=== PATIENT | male | born 2000 | race Caucasian/White ===

== ENCOUNTER 2021-10-29 15:58 | Outpatient (CLI) | payer OTHER, SELFPAY ==
[2021-10-29 16:25] LABS: Hematocrit 43.9 % (42.0-52.0); Hemoglobin 14.9 g/dL (14.0-18.0); Mean Corpuscular HGB Conc 33.9 g/dl (32-36); Mean Corpuscular Volume 97.1 fl (80-100); Mean Platelet Volume 12.1 fl (7.4-10.4); Platelet Count Result 191 k/mm3 (150-375); Red Blood Count 4.52 M/mm3 (4.6-6.20); Red Cell Distribution Width 13.3 % (11.5-14.5); White Blood Count 3.3 K/mm3 (4.5-10.0)
[2021-10-29 16:47] LABS: Alanine Aminotransferase 19 U/L (4-50); Albumin Level 4.4 g/dL (3.5-5.1); Alkaline Phosphatase 63 U/L (38-126); Anion Gap 6 mmol/L (8-16); Aspartate Amino Transferase 27 U/L (17-59); Blood Urea Nitrogen 21 mg/dL (9-20); Calcium 9.2 mg/dL (8.4-10.2); Carbon Dioxide 28 mmol/L (22-30); Chloride 105 mmol/L (98-107); Estimated Glomerular Filt Rate > 60; Glucose 88 mg/dL (65-110); Potassium 4.5 mmol/L (3.4-5.0); Sodium 139 mmol/L (137-145)
[2021-10-31 12:09] LABS: NIL 0.01 IU/mL; Quantiferon TB Plus, 1T NEGATIVE (NEGATIVE)
== END 2021-10-29 15:59 | disposition home or self-care (01) ==
LOC: ANHLAB 16:02
PROVIDERS: PCP Emergency Medicine; Visit Provider Internal Medicine Gastroenterology
DX: K50.90 Crohn's disease, unspecified, without complications (principal)
CPT/HCPCS: 36415; 80053; 80076; 82248; 85027; 86480

== ENCOUNTER 2022-03-20 18:10 | Emergency (ER) | payer OTHER, SELFPAY ==
--- NOTE | ~2022-03-20 | XR_ITS ---
EXAMINATION: XR chest 2V DATE: 03/20/2022 18:51 INDICATION: Left chest pain. TECHNIQUE: Frontal and lateral views of the chest were obtained. COMPARISON: None. FINDINGS: There is no pneumonia, pleural effusion, or pneumothorax. The heart size is normal. IMPRESSION: 1. No acute cardiopulmonary disease. Reviewed, dictated and finalized at location A.
[2022-03-20 18:15] VITALS: BP 106/90; PULSE 78; RESP 24; TEMP 36.7; O2SAT 100
--- NOTE | 2022-03-20 18:31 | ED.GENADULT ---
HPI - General Adult General Chief complaint: Unspecified Stated complaint: cp Time Seen by Provider: 03/20/22 18:33 Source: patient and RN notes reviewed Mode of arrival: ambulatory Limitations: no limitations History of Present Illness HPI narrative: 22 y/o male accompanied by mother presented for c/o left side/chest pain intermittently for 2 weeks, states worse today. Denies injury. States pain is shocking sensation and occurs about every 15 minutes. Pt has history of Crohns disease, taking Humira. Reports unintentional weight loss of 25 lbs in about 2 months. Reports increased belching and nausea, states he felt sick after eating today. Not taking anything for pain. Sometimes he 'pops' his back for brief relief. Last labs showed 'start of anemia.' and he is scheduled for repeat labwork tomorrow and due for colonoscopy. Denies cough, wheezing, dizziness, fever or chills. Related Data Home Medications Medication Instructions Recorded Confirmed adalimumab 40 mg/0.4 mL mg subcut 03/20/22 subcutaneous pen kit (Humira(CF) Pen) Allergies Allergy/AdvReac Type Severity Reaction Status Date / Time No Known Allergies Allergy Verified 02/26/16 11:19 Review of Systems Review of Systems: CONSTITUTIONAL: Denies body aches, fever, chills reports weight loss ENT: Denies rhinorrhea, congestion CARDIOVASCULAR: Denies palpitations, or edema. RESPIRATORY: Denies cough or dyspnea. GASTROINTESTINAL: Endorses nausea, belching Denies abdominal pain, hematochezia, melena, hematemesis GENITOURINARY: Denies dysuria, hematuria, or CVA tenderness. SKIN: Denies rash, itching, or wounds. MUSCULOSKELETAL: Denies back pain, joint pain, or myalgia. NEUROLOGIC: Denies headache, numbness, tingling, or weakness. All systems reviewed & are unremarkable except as noted in HPI and below PMFSH Comments At time of signature, I have reviewed and agree with nursing past medical, surgical, social and family history unless otherwise noted. Please see nursing chart for further information. There is no relevant family history pertinent to the presenting complaint Exam Narrative: GENERAL: no acute distress. EYES: EOMI. Conjunctivae normal. ENT: Mucous membranes pink and moist. CHEST: No respiratory distress. Clear to auscultation. Ribs nontender with palpation, no bruising or lesions. HEART: Regular rate and rhythm. No murmur appreciated. Normal peripheral pulses. ABDOMEN: abd soft, nondistended, normal active bowel sounds. mild epigastric TTP; No guarding EXTREMITIES: Normal range of motion. No edema. SKIN: Warm, dry, no rash. Capillary refill normal. Normal skin turgor. NEURO: Alert and oriented x3. PSYCH: appears anxious. Course Course Emergency Course: Patient is aware of diagnosis, understands and agrees to treatment plan. Anticipatory guidance given. Patient agrees to follow-up as directed and is aware of reasons to seek care at the emergency department. Portions of this record may have been created with voice recognition software Level of Care: Express Care Visit Vital Signs Vital signs: Vital Signs Temperature 98.0 F 03/20/22 18:15 Pulse Rate 78 03/20/22 18:15 Respiratory Rate 24 H 03/20/22 18:15 Blood Pressure 106/90 03/20/22 18:15 Pulse Oximetry 100 03/20/22 18:15 Oxygen Delivery Room Air 03/20/22 18:15 Temperature 98.0 F 03/20/22 18:15 Pulse Rate 78 03/20/22 18:15 Respiratory Rate 24 H 03/20/22 18:15 Blood Pressure 106/90 03/20/22 18:15 Pulse Oximetry 100 03/20/22 18:15 Oxygen Delivery Room Air 03/20/22 18:15 Medical Decision Making MDM Narrative Medical decision making narrative: Pt presented with grasping at chest and hyperventilating. Breathing controlled, vss. Does not appear cardiopulmonary at this time. Symptoms appear c/w reflux. Advised supportive treatment and close f/u with pcp. CXR reviewed with pt. Patient will be discharged with strict return precauti
== END 2022-03-20 19:04 | disposition home or self-care (01) ==
PROVIDERS: Emergency Provider Nurse Practitioner Family
DX: R07.89 Other chest pain (principal); K50.90 Crohn's disease, unspecified, without complications
CPT/HCPCS: 71046; 99213; G0463

== ENCOUNTER 2022-07-14 08:57 | Outpatient (CLI) | payer OTHER, SELFPAY ==
--- NOTE | ~2022-07-14 | XR_ITS ---
Last Shoulder Technique: AP internal/external rotation views, Grashey view, and axillary view were obtained. Clinical History: Pain Findings: No fracture or dislocation is seen. Osseous alignment is anatomic. The glenohumeral and acr omioclavicular joint spaces are preserved. Soft tissues are unremarkable. Impression: Unremarkable left shoulder radiographs. Reviewed, dictated and finalized at location . RT OR [employer] Impression: Unremarkable left shoulder radiographs.
== END 2022-07-14 08:58 | disposition home or self-care (01) ==
LOC: ANHIMG 09:00
PROVIDERS: PCP Nurse Practitioner Family; Visit Provider Nurse Practitioner Family
DX: M25.512 Pain in left shoulder (principal)
CPT/HCPCS: 73030